=== PATIENT | female | born 1990 | race Caucasian/White ===

== ENCOUNTER 2017-10-07 11:49 | Inpatient (IN) | payer BC ==
[2017-10-07] MEDS ORDERED: Nalbuphine 20 MG/ML 1 ML Syringe IVPUSH PRN (12:04)
[2017-10-07] MEDS ORDERED: Sodium Chloride 0.9% 10 ML Syringe FLUSH PRN (12:04)
[2017-10-07] MEDS ORDERED: Lactated Ringers 1,000 ML IV SCH (12:15)
[2017-10-07] MEDS ORDERED: Oxytocin/Lactated Ringers 10 UNIT/1,000 ML BAG IV SCH (12:15)
--- NOTE | 2017-10-07 12:31 | PCM.LDHP ---
L&D History of Present Illness - General Date of Service: 10/07/17 Admit Problem/Dx: Patient Status Order with Admit Dx/Problem 10/07/17 12:04 Patient Status [ADT] Routine Admission Diagnosis/Problem Admission Diagnosis/Problem Active labor 10/07/17 12:23 38-2/7 week IUP, active labor, advanced cervical dilation. Source of Information: Patient History Limitations: Reports: No Limitations - History of Present Illness Introduction:: History of present illness: Ju is a 27-year-old 5 para 3013 white female is admitted in active labor with advanced cervical dilation to 6-7 cm, 100% effaced, +2 station, anterior, cephalic presentation. She's been pj since approximately 0400 hrs. this a.m.Membranes were intact upon arrival in hospital. They now ruptured with resultant clear amniotic flui She is pj every 2-3 minutes. heart tones are reassuring. 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 ROSELINE is 10/19/2017 as determined by certain last menstrual period which started on 01/12/2017 and is supported by multiple ultrasounds during the . Her course started on 05/02/2017 at 15 -5/7 weeks gestational age. She is made good fundal height growth and normal weight gain during the course of . Her weight has gone from 104.2 pounds up to 122 pounds for an 18 pound weight gain. Baby has been active. She has one risk factors as loss of a 27 week prior to this one. She declined testing that had been recommended. She is reporting good activity. Patient declined genetic evaluation. She declined T dap. [place] depression screening score was 1 on a scale 30 on 06/15/2017. Group B strep screen is negative. Monthly growth ultrasounds were initially done but then patient declined these also. Patient plans to breast-feed. Laboratory testing and shows blood to be A+ with a negative antibody screen. laboratory testing showed hemoglobin to be 13.7 g/dL. Platelets 274,000. Rubella titer shows immunity. RPR is nonreactive. Hepatitis B surface antigen and HIV assays were both negative. Gonorrhea and chlamydia assays were both negative. One-hour glucose tolerance test was 100. Her second trimester hemoglobin is 12.5 g/dL and platelets are 237,000. Group B strep screen was negative. Allergies none Medications: vitamins 1 daily Past medical history: 1. Normal spontaneous vaginal delivery 3 with viable pregnancies in 2011, and 2015. 2. Patient had a demise on 01/06/2013 at present 26-27 weeks gestational age. Cause unknown. 3. depression after second which was the loss Past surgical history: Tonsillectomy age 12 Family history: Mother is alive and well at age 50. She is hypothyroid on medications. Father is alive and well at age 51. Patient 6 brothers 2 with type 1 diabetes. 7 sisters 1 with type 1 diabetes. The bleeding, clotting, , anesthesia or asthma problems noted in the family. 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 She does not use any significant most alcohol, drugs or tobacco. is Yadiel. Review of systems: In general patient has no significant concerns. She is reporting contractions. Baby has been active Skin: Negative Cardiovascular: No chest pain or exercise intolerance noted previously Respiratory: No shortness of breath or symptoms Breasts: Changes associated . Patient plans to breast-feed GI: Negative. : By habitus changes associated with increased fundal height Neurological: Negative Musculoskeletal: Negative Physical exam: In general patient is well-developed, well-nourished, pleasant female who is in moderate distress secondary to contractions. Her last blood pressure in clinic was 116/54, weight was 122 with a pregravid weight of 104. heart rate was 124. Her pregravid body mass index was 17.9 and height is 5 feet 1 inches. HEENT neck and back within normal and so para skin is warm dry without lesions. Cardiovascular exam shows regular rate and rhythm without murmurs. Breast exam is deferred at this time having been done at first visit normal. Abdomen is protuberant with last fundal height at 37 cm, baby in vertex presentation. Cervix is described above. Extremities and neurological exam grossly within normal limits. - Related Data Allergies/Adverse Reactions: Allergies Allergy/AdvReac Type Severity Reaction Status Date / Time No Known Allergies Allergy Verified 10/08/13 01:48 Home Medications: Home Meds Vit 90/Iron Fum/Folic [ Formula] 1 tab PO DAILY 12/19/15 [ History] Acetaminophen [Tylenol] 650 mg PO Q4H PRN #0 tablet 12/20/15 [Rx] Benzocaine/Menthol [Dermoplast Pain Relief [place]] 1 spray TOP ASDIRECTED PRN #0 canister 12/20/15 [Rx] Docusate Sodium [Colace] 100 mg PO BID PRN #0 cap 12/20/15 [Rx] Ibuprofen [IJD: Ibuprofen] 200 - 600 mg PO Q6H PRN #0 tablet 12/20/15 [Rx] Witjosi Yandy [Tucks] 1 pad TOP ASDIRECTED PRN #0 pad 12/20/15 [Rx] Past Medical History 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: Neurological History: Reports: Migraines - Past Surgical History HEENT Surgical History: Reports: Adenoidectomy, Tonsillectomy Social & Family History - Family History Family Medical History: Noncontributory H&P Review of Systems - Review of Systems: Review Of Systems: See Below L&D Exam - Exam Exam: See Below Problem List Initiated/Reviewed/Updated: Yes Orders Last 24hrs: Active Orders 24 hr Category Date Time Status Patient Status [ADT] Routine ADT 10/07/17 12:04 Active Activity as Tolerated [RC] PFP Care 10/07/17 12:04 Active Communication Order [RC] ASDIRECTED Care 10/07/17 12:04 Active Heart Tones [RC] ASDIRECTED Care 10/07/17 12:05 Active Notify Provider [RC] PFP Care 10/07/17 12:04 Active Notify Provider [RC] PRN Care 10/07/17 12:04 Active Peripheral IV Care [RC] . DIRECTED Care 10/07/17 12:05 Active Vital Signs [RC] PER UNIT ROUTINE Care 10/07/17 12:04 Active Regular Diet [DIET] Diet 10/07/17 Lunch Active Lactated Ringers [Ringers, Lactated] 1,000 ml Med 10/07/17 12:15 Active IV ASDIRECTED Lidocaine 1% [Xylocaine 1%] Med 10/07/17 17:00 Once 20 ml INJECT ONETIME ONE Nalbuphine [Nubain] Med 10/07/17 12:04 Active 10 mg IVPUSH Q2H PRN Oxytocin/Lactated Ringers [Pitocin in LR 10 Units/1,000 Med 10/07/17 12:15 Active ML] 10 unit in 1,000 ml IV .CONTINUOUS Sodium Chloride 0.9% [Saline Flush] Med 10/07/17 12:04 Active 10 ml FLUSH ASDIRECTED PRN Electronic Heart Tones Ext w TOCO [WOMSER] Oth 10/07/17 12:04 Ordered Routine Electronic Heart Tones Internal [WOMSER] Per Unit Ot 10/07/17 12:04 Ordered Routine Peripheral IV Insertion Adult [OM.PC] Routine Oth 10/07/17 12:04 Ordered Resuscitation Status Routine Resus Stat 10/07/17 12:04 Ordered Medication Orders Lactated Ringer's (Ringers, Lactated) 1,000 mls @ 100 mls/hr IV ASDIRECTED SINDHU Oxytocin/Lactated Ringer's (Pitocin In Lr 10 Units/1,000 Ml) 10 unit in 1,000 mls @ 500 mls/hr IV .CONTINUOUS SINDHU Lidocaine HCl (Xylocaine 1%) 20 ml INJECT ONETIME ONE Stop: 10/07/17 17:01 Nalbuphine HCl (Nubain) 10 mg IVPUSH Q2H PRN PRN Reason: Pain (moderate 4-6) Sodium Chloride (Saline Flush) 10 ml FLUSH ASDIRECTED PRN PRN Reason: Keep Vein Open Assessment/Plan Comment:: 1. 38-2/7 week intrauterine , active labor, advanced cervical dilation 2. Group B strep screen is negative 3. Rubella immune 4 Patient plans to breast-feed. 5. Patient wishes to have a natural labor Plan: 1. Anticipate normal spontaneous vaginal delivery 2. Natural labor 3. Support breast-feeding decision
[2017-10-07] MEDS ORDERED: Lidocaine 1% 50 ML MDV ONE (13:06)
--- NOTE | 2017-10-07 13:40 | PCM.SN ---
- Free Text/Narrative Note: Delivery note: Ju is a 27-year-old 5 now para 4014 white female at 38-2/7 weeks gestational age with an ROSELINE of 10/19/2017 who was admitted on the a.m. of 10/07/2017 in active labor. She is 5 cm upon admission. She had artificial rupture membranes and progressed rapidly to complete dilation. She pushed approximately 5 times and delivered a viable, cunningham, female infant in the left occiput anterior position over an intact perineum. Nose and mouth were bulb suctioned and baby was placed on mom's abdomen. Cord was allowed to pulsate until it stopped then was clamped 2 and then was cut by the baby's father. Baby was born at 1321 hrs., weight 3040 g (6 lbs. 11 oz.) . The placenta delivered at 1326 hrs. in a [place] presentation, appeared complete and intact and was discarded per patient desire. Estimated blood loss was 100 mL. Condition good. Patient plans to breast-feed. Patient had declined an IV, desired not to have Pitocin unless absolutely necessary and was able to maintain good uterine tone with massage and nursing only.
[2017-10-07] MEDS ORDERED: Docusate Sodium 100 MG Cap PO PRN (14:16)
[2017-10-07] MEDS ORDERED: Acetaminophen 325 MG Tab PO PRN (14:16)
[2017-10-07] MEDS ORDERED: Benzocaine/Menthol 20%-0.5% Spray 56 GM Canister TOP PRN (14:16)
[2017-10-07] MEDS ORDERED: Witch Hazel Medicated Pads 100/Jar TOP PRN (14:16)
[2017-10-07] MEDS ORDERED: Lanolin 100% Cream 7 GM Tube TOP PRN (14:16)
[2017-10-07] MEDS: Ibuprofen 600 MG Tab PO PRN ×2 (15:26→22:20)
[2017-10-07] MEDS ORDERED: Lidocaine 1% 50 ML MDV INJECT ONE (17:00)
[2017-10-08] MEDS: Ibuprofen 600 MG Tab PO PRN (04:22)
--- NOTE | 2017-10-08 05:16 | PCM.DCSUM1 ---
Discharge Summary - Hospital Course HPI Initial Comments: Admitted in active labor Diagnosis: Stroke: No - Discharge Data Discharge Date: 10/08/17 Discharge Disposition: Admitted As Inpatient 66 Condition: Good - Patient Summary/Data Hospital Course: madison is a 27-year-old 5 now para 4014 white female at 38-2/7 weeks gestational age with an ROSELINE of 10/19/2017 who was admitted on the a.m. of 2017 in active labor. She is 5 cm upon admission. She had artificial rupture membranes and progressed rapidly to complete dilation. She pushed approximately 5 times and delivered a viable, cunningham, female infant in the left occiput anterior position over an intact perineum. Nose and mouth were bulb suctioned and baby was placed on mom's abdomen. Cord was allowed to pulsate until it stopped then was clamped 2 and then was cut by the baby's father. Baby was born at 1321 hrs., weight 3040 g (6 lbs. 11 oz.) . The placenta delivered at 1326 hrs. in a [place] presentation, appeared complete and intact and was discarded per patient desire. Estimated blood loss was 100 mL. Condition good. Patient plans to breast-feed. - Patient Instructions Diet: Usual Diet as Tolerated Activity: No Strenuous Activities Activity, Other: pelvic rest Driving: May Drive Today Showering/Bathing: May Shower Wound/Incision Care: Keep Operative Site/Wound Site Clean and Dry Notify Provider of: Fever, Increased Pain, Swelling and Redness, Drainage, Nausea and/or Vomiting - Discharge Plan Home Medications: Home Meds Vit 90/Iron Fum/Folic [ Formula] 1 tab PO DAILY 12/19/15 [ History] Acetaminophen [Tylenol] 650 mg PO Q4H PRN #0 tablet 12/20/15 [Rx] Benzocaine/Menthol [Dermoplast Pain Relief [place]] 1 spray TOP ASDIRECTED PRN #0 canister 12/20/15 [Rx] Docusate Sodium [Colace] 100 mg PO BID PRN #0 cap 12/20/15 [Rx] Ibuprofen [IJD: Ibuprofen] 200 - 600 mg PO Q6H PRN #0 tablet 12/20/15 [Rx] Witjosi Stockel [Tucks] 1 pad TOP ASDIRECTED PRN #0 pad 12/20/15 [Rx] Referrals: Meng Givens MD [Primary Care Provider] - (2 weeks) - Discharge Summary/Plan Comment DC Time >30 min.: No - General Info Date of Service: 10/08/17 Functional Status: Reports: Pain Controlled - Review of Systems General: Reports: No Symptoms HEENT: Reports: No Symptoms Pulmonary: Reports: No Symptoms Cardiovascular: Reports: No Symptoms Gastrointestinal: Reports: No Symptoms Genitourinary: Reports: No Symptoms Musculoskeletal: Reports: No Symptoms Skin: Reports: No Symptoms Neurological: Reports: No Symptoms Psychiatric: Reports: No Symptoms - Patient Data Vitals - Most Recent: Last Vital Signs Temp 36.8 C 10/07/17 21:00 Pulse 62 10/07/17 21:00 Resp 16 10/07/17 21:00 BP 114/61 10/07/17 21:00 Pulse Ox 98 10/07/17 21:00 Weight - Most Recent: 54.885 kg Med Orders - Current: Current Medications Acetaminophen (Tylenol) 650 mg PO Q4H PRN PRN Reason: mild pain or fever Benzocaine/Menthol (Dermoplast Pain Relief [place]) 0 gm TOP ASDIRECTED PRN PRN Reason: Perineal Comfort Measure Last Admin: 10/08/17 04:20 Dose: 1 canister Docusate Sodium (Colace) 100 mg PO BID PRN PRN Reason: Constipation Emollient Ointment (Lansinoh Hpa) 0 gm TOP ASDIRECTED PRN PRN Reason: Sore Nipples Ibuprofen (Motrin) 600 mg PO Q4H PRN PRN Reason: Mild pain or fever Last Admin: 10/08/17 04:22 Dose: 600 mg Prenat Multivit/[place]ierra/Iron/Folic Ac ( Plus Iron) 1 each PO DAILY [facility] Harvey Kebede (Tucks) 1 pad TOP ASDIRECTED PRN PRN Reason: Hemorrhoid pain Last Admin: 10/08/17 04:21 Dose: 1 tub Discontinued Medications Lactated Ringer's (Ringers, Lactated) 1,000 mls @ 100 mls/hr IV ASDIRECTED [facility] Oxytocin/Lactated Ringer's (Pitocin In Lr 10 Units/1,000 Ml) 10 unit in 1,000 mls @ 500 mls/hr IV .CONTINUOUS [facility] Lidocaine HCl (Xylocaine 1%) 20 ml INJECT ONETIME ONE Stop: 10/07/17 17:01 Lidocaine HCl (Xylocaine 1%) Confirm Administered Dose 50 ml .ROUTE .STK-MED ONE Stop: 10/07/17 13:07 Last Admin: 10/07/17 20:15 Dose: Not Given Nalbuphine HCl (Nubain) 10 mg IVPUSH Q2H PRN PRN Reason: Pain (moderate 4-6) Sodium Chloride (Saline Flush) 10 ml FLUSH ASDIRECTED PRN PRN Reason: Keep Vein Open - Exam General: Reports: Alert, Oriented HEENT: Reports: Pupils Equal, Pupils Reactive, EOMI, Mucous Membr. Moist/[place] Neck: Reports: Supple Lungs: Reports: Clear to Auscultation, Normal Respiratory Effort Cardiovascular: Reports: Regular Rate, Regular Rhythm GI/Abdominal Exam: Normal Bowel Sounds, Soft Back Exam: Reports: Normal Inspection, Full Range of Motion Extremities: Normal Inspection, Normal Range of Motion, Non-Tender, No Pedal Edema, Normal Capillary Refill Skin: Reports: Warm, Dry, Intact Wound/Incisions: Reports: Healing Well Neurological: Reports: No New Focal Deficit Psy/Mental Status: Reports: Alert
[2017-10-08] MEDS ORDERED: Prenatal Multivitamin with Calcium/Folic Acid/Iron Tab PO SCH (09:00)
[2017-10-08 10:58] VITALS: BP 114/69
== END 2017-10-08 14:28 | disposition home or self-care (01) | DRG 560 ==
LOC: JD.OBCHECK 11:49 → JD.OB 11:51 → JD.OBCHECK 12:03 → JD.OB 12:04 → OBSVTOIN 13:21 → JD.OB 13:22
PROVIDERS: ADMIT Obstetrics & Gynecology; ATTEND Obstetrics & Gynecology
PROC: 10907ZC Drainage of Amniotic Fluid, Therapeutic from Products of Conception, Via Natural or Artificial Opening (ICD-10-PCS; principal; 2017-10-07)
PROC: 10E0XZZ Delivery of Products of Conception, External Approach (ICD-10-PCS; principal; 2017-10-07)
DX: O80 Encounter for full-term uncomplicated delivery (principal); Z3A.38 38 weeks gestation of pregnancy; Z37.0 Single live birth
CPT/HCPCS: 36415; 59025; 59409; 86592; A9270-GY

== ENCOUNTER 2019-08-24 22:47 | Inpatient (IN) | payer BC ==
[2019-08-24] MEDS ORDERED: Lactated Ringers 1,000 ML IV SCH (23:45)
[2019-08-24] MEDS ORDERED: Sodium Chloride 0.9% 10 ML Syringe FLUSH PRN (23:57)
[2019-08-24] MEDS ORDERED: Nalbuphine 10 MG/ML Syringe IVPUSH PRN (23:57)
--- NOTE | 2019-08-25 02:10 | PCM.LDHP ---
L&D History of Present Illness - General Date of Service: 08/25/19 Admit Problem/Dx: Patient Status Order with Admit Dx/Problem 08/24/19 22:54 Patient Status [ADT] Routine 08/24/19 23:58 Patient Status [ADT] Routine Admission Diagnosis/Problem Admission Diagnosis/Problem 08/25/19 01:56 Ju is a 28-year-old 6 para 4014 white female was admitted on the night of 08/24/2019 in active labor with a that is 39-1/7 weeks gestational age with an ROSELINE of 09/02/2019. Source of Information: Patient History Limitations: Reports: No Limitations - History of Present Illness Introduction:: Ju is a 28-year-old 6 para 4014 white female was admitted on the night of 08/24/2019 in active labor with a that is 39-1/7 weeks gestational age with an ROSELINE of 09/02/2019.She started labor over the course of last 24 hours. It is increased to frequency of 2-3 minutes and intensity is strong. She is dilated since her last evaluation clinic. Membranes are intact. Baby is active. heart tones are reassuring. 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 Her ROSELINE is 2019 as based upon a certain last menstrual period started 11/26/2018 confirmed with at least 1 ultrasound done on 01/21/2019 at 12-6/7 weeks. Patient had menarche at approximately age 12. Cycles are every month. LMP was relatively certain. Patient has had 5 vaginal deliveries. Second baby was at 26 weeks demise. Largest baby was 6 lbs. 14 oz. She has 3 living daughters and 1 son. course: Patient was seen for her first on 02/21/2019 at 12-3/ 7 weeks. She was seen on a reasonably regular basis during the course of . Weight gain was from 102.2 pounds up to 120.2 pounds for an 18 pound increase. Fundal height growth was appropriate. Vital signs are stable throughout the . Patient is group B strep negative. She declined influenza and the Tdap immunization. She plans to breast-feed. She desires natural labor. Her [place] depression screening score on 04/10/2019 was 2/30. Her rubella titer shows immunity. Laboratory testing and shows blood to be a positive with a negative MRI screen. Hemoglobin is 14.1 g/dL. Platelets 267,000. She is rubella immune. RPR is nonreactive. Urine culture showed no growth after 2 days. Hepatitis B surface antigen and HIV assays were both negative. Gonorrhea tests were both negative. Second trimester labs showed a hemoglobin of 12.3 g/dL and platelets of 229,000. Diabetic screen test was normal at 100 and. Her group B strep screen was negative. Her RPR on 05/31/2019 was nonreactive. Allergies: None Medications: vitamins 1 by mouth daily. Past medical history: 1. Normal spontaneous vaginally 5 2011 through 2017 2. demise at 26 weeks gestational age 3. depression after loss of her second child 4. Seasonal allergies Past surgical history: 1. Tonsillectomy age 12. Family history: Mother and father are alive and well at age 51. Mother is hypothyroid. Patient has 6 brothers to his type 1 diabetes. 7 sisters1 with type 1 diabetes. No bleeding, blood clotting, , anesthesia or asthma problems noted in the family. Social history: Patient is . is Yadiel. 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 She is a high school graduate. She and her family live in [place], [place]. She does not use any significant amounts of alcohol, drugs or tobacco. Review of systems: In general patient has no complaints other than labor pains. Skin: Negative Lungs: No infectious symptoms or shortness of breath Cardiovascular: No chest pain or exercise intolerance Breasts: No lumps, changes in size, pain, dimpling, discharge or axillary or supraclavicular concerns. Changes associated . Patient plans to breast- feed. GI: Negative : body habitus changes Musculoskeletal: Negative Neurological: Negative In general the patient is well-developed, well-nourished, pleasant female of stated age in no acute distress. On last evaluation clinic on 08/09/2019 patient's blood pressures 110/62, weight was 120.2 with pregravid weight at 102.2. Height is 5 feet 1. Prepregnancy body mass index is 18.1. heart rate was 125. Skin is warm dry without lesions. HEENT, neck and back within normal limits. Lungs are clear with good breath sounds in all lung mckay. Cardiovascular exam shows regular and rhythm without murmurs. Abdomen is flat, soft, nontender without masses or organomegaly. Positive bowel sounds are noted. No inguinal lymphadenopathy or hernias are noted. Genital per digital exam at the time of her last clinic visit cervix was 2 cm dilated, 70% effaced, soft, posterior, -3. Per nursing evaluation on admission her cervix was 3-4 cm. Extremities and neurological exam are grossly within normal limits. 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 - Past Surgical History HEENT Surgical History: Reports: Adenoidectomy, Tonsillectomy Social & Family History - Family History Family Medical History: Noncontributory - Tobacco Use Smoking Status *Q: Never Smoker Second Hand Smoke Exposure: No - Caffeine Use Caffeine Use: Reports: None - Recreational Drug Use Recreational Drug Use: No H&P Review of Systems - Review of Systems: Review Of Systems: See Below L&D Exam - Exam Exam: See Below - Vital Signs Vital Signs: Last Vital Signs Temp 36.5 C 08/24/19 22:54 Pulse 77 08/24/19 22:54 Resp 16 08/24/19 22:54 BP 134/95 H 08/24/19 22:54 Pulse Ox 98 08/24/19 22:54 Weight: 55.338 kg Problem List Initiated/Reviewed/Updated: Yes Orders Last 24hrs: Active Orders 24 hr Category Date Time Status Patient Status [ADT] Routine ADT 08/24/19 23:58 Active Activity as Tolerated [RC] PFP Care 08/24/19 23:58 Active Communication Order [RC] ASDIRECTED Care 08/24/19 23:58 Active Heart Tones [RC] ASDIRECTED Care 08/24/19 23:58 Active Non Stress Test [RC] PER UNIT ROUTINE Care 08/24/19 22:54 Active Notify Provider [RC] PFP Care 08/24/19 23:58 Active Notify Provider [RC] PRN Care 08/24/19 23:58 Active Peripheral IV Care [RC] . DIRECTED Care 08/24/19 23:58 Active Vital Signs [RC] PER UNIT ROUTINE Care 08/24/19 22:54 Active Vital Signs [RC] PER UNIT ROUTINE Care 08/24/19 23:58 Active Regular Diet [DIET] Diet 08/24/19 Breakfast Active RAPID PLASMA REAGIN,RPR [CHEM] Routine Lab 08/24/19 23:58 Ordered Lactated Ringers [Ringers, Lactated] 1,000 ml Med 08/24/19 23:45 Active IV ASDIRECTED Nalbuphine [Nubain] Med 08/24/19 23:57 Active 10 mg IVPUSH Q2H PRN Sodium Chloride 0.9% [Saline Flush] Med 08/24/19 23:57 Active 10 ml FLUSH ASDIRECTED PRN Electronic Heart Tones Ext w TOCO [WOMSER] Oth 08/24/19 23:58 Ordered Routine Electronic Heart Tones Internal [WOMSER] Per Unit Oth 08/24/19 23:58 Ordered Routine Peripheral IV Insertion Adult [OM.PC] Routine Oth 08/24/19 23:58 Ordered Resuscitation Status Routine Resus Stat 08/24/19 22:54 Ordered Medication Orders Lactated Ringer's (Ringers, Lactated) 1,000 mls @ 100 mls/hr IV ASDIRECTED SINDHU Nalbuphine HCl (Nubain) 10 mg IVPUSH Q2H PRN PRN Reason: Pain Sodium Chloride (Saline Flush) 10 ml FLUSH ASDIRECTED PRN PRN Reason: Keep Vein Open Assessment/Plan Comment:: 1. 28-year-old 6 para 4014 white female at 38-6/7 week with an ROSELINE of upon admission in active labor. 2. Group B strep screen negative. 3. Patient desires natural labor 4. Rubella immune 5. Risk factors include history of previous demise at 26 weeks 6. Patient declined Tdap and flu immunization 7. Patient plans to breast-feed. Plan: 1. Anticipate normal spontaneous vaginal delivery 2. Natural delivery plan. 3. Patient desires not to have an IV. She is aware of the risks. 4. Support breast-feeding plan.
--- NOTE | 2019-08-25 02:46 | PCM.SN.2 ---
- Free Text/Narrative Note: Delivery note: Ju is a 28-year-old 6 para 4014 white female was admitted on the night of 08/24/2019 in active labor with a that is 39-1/7 weeks gestational age with an ROSELINE of 09/02/2019. Patient desired natural labor. She declined IV placement. She is aware of risks. She progressed steadily to complete cervical dilation by approximately 0200 hrs. on 08/25/2019. At oh to 18 hours she delivered a viable, cunningham, male infant with Apgars of 9 and 9, a length of 19.0, a weight of 6 pounds, 8 ounces in a direct occiput anterior position over an intact perineum. The baby was placed on mom's abdomen and warmed and dried with a warm blanket. The cord was noted to have 3 vessels. It was allowed to pulsate until it had stopped and placenta was beginning to deliver. The cord was then clamped 2, cut by the baby's father Yadiel. Cord blood was obtained. The placenta then delivered in a [place] presentation, appeared intact and complete and was discarded per patient desire. Estimated blood loss was approximately 100 mL. Patient plans to breast-feed. Condition: Good
[2019-08-25] MEDS ORDERED: Witch Hazel Medicated Pads 40/Jar TOP PRN (03:13)
[2019-08-25] MEDS ORDERED: Docusate Sodium 100 MG Cap PO PRN (03:13)
[2019-08-25] MEDS ORDERED: Benzocaine/Menthol 20%-0.5% Spray 56 GM Canister TOP PRN (03:13)
[2019-08-25] MEDS ORDERED: Acetaminophen 325 MG Tab PO PRN (03:13)
[2019-08-25] MEDS: Ibuprofen 600 MG Tab PO PRN ×3 (04:36→17:42)
--- NOTE | 2019-08-25 09:46 | PCM.SN.2 ---
- Free Text/Narrative Note: note: Date of delivery Patient is doing well in the period. Minimal lochia, voiding well, ambulated without problems. Nursing without concerns. Patient is afebrile, vital signs are stable Abdomen is flat, soft, uterus is below the umbilicus and is firm and nontender. Legs are nontender. Assessment: recovery going well. Plan: Routine care. Patient be discharged home within the next 24-48 hours.
[2019-08-25] MEDS: Prenatal Multivitamin with Calcium/Folic Acid/Iron Tab PO SCH (10:23)
--- NOTE | 2019-08-26 07:39 | PCM.DCSUM1 ---
Discharge Summary - Hospital Course Free Text/Narrative:: Ju is a 28-year-old 6 para 4014 white female was admitted on the night of 08/24/2019 in active labor with a that is 39-1/7 weeks gestational age with an ROSELINE of 09/02/2019. Patient desired natural labor. She declined IV placement. She is aware of risks. She progressed steadily to complete cervical dilation by approximately 0200 hrs. on 08/25/2019. At oh to 18 hours she delivered a viable, cunningham, male infant with Apgars of 9 and 9, a length of 19.0, a weight of 6 pounds, 8 ounces in a direct occiput anterior position over an intact perineum. The baby was placed on mom's abdomen and warmed and dried with a warm blanket. The cord was noted to have 3 vessels. It was allowed to pulsate until it had stopped and placenta was beginning to deliver. The cord was then clamped 2, cut by the baby's father Yadiel. Cord blood was obtained. The placenta then delivered in a [place] presentation, appeared intact and complete and was discarded per patient desire. Estimated blood loss was approximately 100 mL. Patient plans to breast-feed. patient has done well. She is ambulating well, has minimal lochia, is voiding without problems and is nursing without concerns. She is desiring discharge home. Condition: Good Diagnosis: Stroke: No - Discharge Data Discharge Date: 08/26/19 Discharge Disposition: Home, Self-Care 01 Condition: Good - Referral to Home Health Primary Care Physician: Meng Givens MD - Patient Instructions Diet: Regular Diet as Tolerated (Nursing diet with increase calories and calcium as recommended) Activity: As Tolerated (No intercourse or tampons until bleeding resolves) Driving: May Drive Today Showering/Bathing: May Shower (May take a bath) Notify Provider of: Fever, Increased Pain, Swelling and Redness, Nausea and/or Vomiting - Discharge Plan Home Medications: Home Meds Vit 90/Iron Fum/Folic [ Formula] 1 tab PO DAILY 12/19/15 [ History] Acetaminophen [Tylenol] 650 mg PO Q4H PRN tablet 08/26/19 [Rx] Ibuprofen [Motrin] 600 mg PO Q4H PRN tablet 08/26/19 [Rx] Referrals: Meng Givens MD [Primary Care Provider] - (Patient is to call to clinic to make a telehealth appointment for 2 weeks from the time of delivery.) - Discharge Summary/Plan Comment DC Time >30 min.: No Discharge Summary/Plan Comment: Discharge instructions: 1. Discharge home 2. Diet, activity and follow-up discussed with patient. Recommend nursing diet with increased calories and calcium. 3. Precautions given concern increased pain, bleeding, temperature, signs/ symptoms of DVT/PE. 4. Medications per home medication was printed, discussed with and given to the patient. 5. The patient is to call the clinic to make a telehealth appointment with Dr. Givens[facility] for 2 weeks . Diagnosis: Term -delivered Condition: Good - Patient Data Vitals - Most Recent: Last Vital Signs Temp 36.9 C 08/26/19 04:16 Pulse 54 L 08/26/19 04:16 Resp 16 08/26/19 04:16 BP 107/65 08/26/19 04:16 Pulse Ox 95 08/26/19 04:16 Weight - Most Recent: 55.338 kg Med Orders - Current: Current Medications Acetaminophen (Tylenol) 650 mg PO Q4H PRN PRN Reason: mild pain or fever Benzocaine/Menthol (Dermoplast Pain Relief [place]) 0 gm TOP ASDIRECTED PRN PRN Reason: Perineal Comfort Measure Docusate Sodium (Colace) 100 mg PO BID PRN PRN Reason: Constipation Ibuprofen (Motrin) 600 mg PO Q4H PRN PRN Reason: Mild pain or fever Last Admin: 08/25/19 17:42 Dose: 600 mg Prenat Multivit/[place]/Iron/Folic Ac ( Plus Iron) 1 each PO DAILY SINDHU Last Admin: 08/25/19 10:23 Dose: Not Given Witch Yandy (Tucks) 1 pad TOP ASDIRECTED PRN PRN Reason: Perineal Comfort Measure Last Admin: 08/25/19 04:36 Dose: 1 tub Discontinued Medications Lactated Ringer's (Ringers, Lactated) 1,000 mls @ 100 mls/hr IV ASDIRECTED SINDHU Nalbuphine HCl (Nubain) 10 mg IVPUSH Q2H PRN PRN Reason: Pain Sodium Chloride (Saline Flush) 10 ml FLUSH ASDIRECTED PRN PRN Reason: Keep Vein Open
[2019-08-26 09:11] VITALS: BP 125/86; PULSE 58
[2019-08-26] MEDS: Prenatal Multivitamin with Calcium/Folic Acid/Iron Tab PO SCH (09:35)
== END 2019-08-26 09:25 | disposition home or self-care (01) | DRG 560 ==
LOC: JD.OB 22:47 → JD.OBCHECK 22:47 → JD.OB 23:58 → OBSVTOIN 08-25 02:18 → JD.OB 08-25 02:18
PROVIDERS: ADMIT Obstetrics & Gynecology; ATTEND Obstetrics & Gynecology
PROC: 10E0XZZ Delivery of Products of Conception, External Approach (ICD-10-PCS; principal; 2019-08-25)
DX: O80 Encounter for full-term uncomplicated delivery (principal); Z37.0 Single live birth; Z3A.39 39 weeks gestation of pregnancy
CPT/HCPCS: 59025; 59409; A9270-GY

== ENCOUNTER 2021-03-02 04:18 | Inpatient (IN) | payer BC ==
[2021-03-02] MEDS ORDERED: Nalbuphine 10 MG/1 ML Vial IVPUSH PRN (05:51)
[2021-03-02] MEDS ORDERED: Sodium Chloride 0.9% 10 ML Syringe FLUSH PRN (05:51)
[2021-03-02] MEDS ORDERED: Lactated Ringers 1,000 ML IV SCH (06:00)
[2021-03-02] MEDS ORDERED: Oxytocin 10 Units/1 ML SDV ONE (06:32)
[2021-03-02] MEDS ORDERED: Carboprost Tromethamine 250 MCG/1 ML Amp ONE (06:37)
--- NOTE | 2021-03-02 06:45 | PCM.DEL ---
L & D Note - General Info Date of Service: 03/02/21 - Delivery Note Labor: Spontaneous Delivery Outcome: Livebirth Delivery Method: Spontaneous Vaginal Delivery-Single Delivery Mode: Spontaneous Presentation: Right Occiput Anterior (CHERYL) Nuchal Cord: Present. No: Reduced Anesthesia Type: None Amniotic Fluid Description: Clear Episiotomy Type: None Laceration: None Placenta: Intact, Spontaneous Cord: 3 Vessels Estimated Blood Loss: 400 Resuscitation Needed: Yes [place]: Bulb Syringe, Stimulated, Warmed, [place] Used Delivery Comments (Free Text/Narrative):: Patient found to be complete and began pushing. With maternal pushing effort head delivered from CHERYL presentation. Nuchal cord present, but tight and so not reduced. With gentle downward traction shoulders and body delivered. placed on maternal abdomen. Cord clamped and cut. Cord blood obtained. Placenta allowed time to separate and expelled intact. Patient initially declined pitocin, but had several large clots and somewhat heavy flow. Agreed to IM pitocin. Bleeding improved with this. Inspection of perineum with no tears - General Info Date of Service: 03/02/21 - Problem List & Annotations (1) Normal labor SNOMED Code(s): 44544905 Code(s): O80 - ENCOUNTER FOR FULL-TERM UNCOMPLICATED DELIVERY; Z37.9 - OUTCOME OF DELIVERY, UNSPECIFIED Status: Acute Current Visit: Yes (2) 38 weeks gestation of SNOMED Code(s): 47992469 Code(s): Z3A.38 - 38 WEEKS GESTATION OF Status: Acute Current Visit: No (3) Vaginal delivery SNOMED Code(s): 946808440 Code(s): O80 - ENCOUNTER FOR FULL-TERM UNCOMPLICATED DELIVERY Status: Acute Current Visit: Yes - Problem List Review Problem List Initiated/Reviewed/Updated: Yes - My Orders Last 24 Hours: My Active Orders 03/02/21 04:27 Non Stress Test [RC] PER UNIT ROUTINE Vital Signs [RC] PER UNIT ROUTINE Resuscitation Status Routine 03/02/21 04:45 Patient Status [ADT] Routine 03/02/21 05:51 Activity as Tolerated [RC] PFP Communication Order [RC] ASDIRECTED Notify Provider [RC] PFP Notify Provider [RC] PRN Nalbuphine [Nubain] 10 mg IVPUSH Q2H PRN Sodium Chloride 0.9% [Saline Flush] 10 ml FLUSH ASDIRECTED PRN Electronic Heart Tones Ext w TOCO [WOMSER] Routine Electronic Heart Tones Internal [WOMSER] Per Unit Routine Peripheral IV Insertion Adult [OM.PC] Routine 03/02/21 05:52 Heart Tones [RC] ASDIRECTED Peripheral IV Care [RC] . DIRECTED CORONAVIRUS COVID-19 LULI [MOLEC] Stat 03/02/21 06:00 Lactated Ringers [Ringers, Lactated] 1,000 ml IV ASDIRECTED 03/02/21 06:43 Patient Status Manage Transfer [TRANSFER] Routine - Assessment Assessment:: PPD#0 - Plan Plan:: * Routine cares * Breast feeding * Discharge in 1-2 day
--- NOTE | 2021-03-02 06:45 | PCM.LDHP ---
L&D History of Present Illness - General Date of Service: 03/02/21 Admit Problem/Dx: Patient Status Order with Admit Dx/Problem 03/02/21 04:27 Patient Status [ADT] Routine 03/02/21 04:45 Patient Status [ADT] Routine Admission Diagnosis/Problem Admission Diagnosis/Problem Active labor Source of Information: Patient History Limitations: Reports: No Limitations - History of Present Illness Introduction:: 30 y/o at 38 6/7 wks who presented with SROM / labor. Doing well. Feeling urge to push - Related Data Allergies/Adverse Reactions: Allergies Allergy/AdvReac Type Severity Reaction Status Date / Time No Known Allergies Allergy Verified 03/02/21 08:14 Home Medications: Home Meds Vit 90/Iron Fum/Folic [ Formula] 1 tab PO DAILY 12/19/15 [History] Past Medical History [employer] History: Reports: , Other (See Below) : 7 Para: 6 (5 living children) Other OB/BYN History: Second resulted in 26 week demise Neurological History: Reports: Migraines Psychiatric History: Reports: Other (See Below) Other Psychiatric History: Spouse reports depression after loss of second child, denies any medications or hospitalizations. - Past Surgical History HEENT Surgical History: Reports: Adenoidectomy, Tonsillectomy Social & Family History - Family History Family Medical History: No Pertinent Family History - Tobacco Use Tobacco Use Status *Q: Never Tobacco User - Caffeine Use Caffeine Use: Reports: None - Alcohol Use Alcohol Use History: No - Recreational Drug Use Recreational Drug Use: No H&P Review of Systems - Review of Systems: Review Of Systems: See Below General: Reports: No Symptoms Pulmonary: Reports: No Symptoms Cardiovascular: Reports: No Symptoms Gastrointestinal: Reports: Abdominal Pain Genitourinary: Reports: No Symptoms Musculoskeletal: Reports: No Symptoms Psychiatric: Reports: No Symptoms Neurological: Reports: No Symptoms L&D Exam - Exam Exam: See Below - OB Specific Contraction Intensity: Moderate to Strong Movement: Active Heart Tones: Present Heart Tones per Min: 130 Heart Rate (FHR) Variability: Moderate (6-25 bpm) Presentation: Vertex - Arboleda Score Arboleda Score Cervix Position: Anterior Arboleda Score Consistency: Soft Arboleda Score Effacement: >80% Arboleda Score Dilation: > 5 cm Arboleda Score Infant's Station: -1 ,0 Arboleda Score Total: 12 - Exam General: Alert, Oriented, Cooperative Lungs: Clear to Auscultation, Normal Respiratory Effort Cardiovascular: Regular Rate, Regular Rhythm GI/Abdominal Exam: Soft, Non-Tender Genitourinary: Normal external exam Extremities: Normal Inspection Skin: Warm, Dry, Intact - Problem List (1) 38 weeks gestation of SNOMED Code(s): 78695482 ICD Code: Z3A.38 - 38 WEEKS GESTATION OF Status: Acute Current Visit: No (2) Normal labor SNOMED Code(s): 26544497 ICD Code: O80 - ENCOUNTER FOR FULL-TERM UNCOMPLICATED DELIVERY; Z37.9 - OUTCOME OF DELIVERY, UNSPECIFIED Status: Acute Current Visit: Yes Problem List Initiated/Reviewed/Updated: Yes Orders Last 24hrs: Active Orders 24 hr Category Date Time Status Patient Status Manage Transfer [TRANSFER] Routine ADT 03/02/21 06:43 Ordered Patient Status [ADT] Routine ADT 03/02/21 04:45 Active Activity as Tolerated [RC] PFP Care 03/02/21 05:51 Active Communication Order [RC] ASDIRECTED Care 03/02/21 05:51 Active Heart Tones [RC] ASDIRECTED Care 03/02/21 05:52 Active Non Stress Test [RC] PER UNIT ROUTINE Care 03/02/21 04:27 Active Notify Provider [RC] PFP Care 03/02/21 05:51 Active Notify Provider [RC] PRN Care 03/02/21 05:51 Active Peripheral IV Care [RC] . DIRECTED Care 03/02/21 05:52 Active Vital Signs [RC] PER UNIT ROUTINE Care 03/02/21 04:27 Active CORONAVIRUS COVID-19 LULI [MOLEC] Stat Lab 03/02/21 05:52 Ordered Lactated Ringers [Ringers, Lactated] 1,000 ml Med 03/02/21 06:00 Active IV ASDIRECTED Nalbuphine [Nubain] Med 03/02/21 05:51 Active 10 mg IVPUSH Q2H PRN Sodium Chloride 0.9% [Saline Flush] Med 03/02/21 05:51 Active 10 ml FLUSH ASDIRECTED PRN Electronic Heart Tones Ext w TOCO [WOMSER] Oth 03/02/21 05:51 Ordered Routine Electronic Heart Tones Internal [WOMSER] Per Unit Oth 03/02/21 05:51 Ordered Routine Peripheral IV Insertion Adult [OM.PC] Routine Oth 03/02/21 05:51 Ordered Resuscitation Status Routine Resus Stat 03/02/21 04:27 Ordered Medication Orders Lactated Ringer's (Ringers, Lactated) 1,000 mls @ 100 mls/hr IV ASDIRECTED SINDHU Nalbuphine HCl (Nalbuphine 10 Mg/1 Ml Vial) 10 mg IVPUSH Q2H PRN PRN Reason: Pain Sodium Chloride (Sodium Chloride 0.9% 10 Ml Syringe) 10 ml FLUSH ASDIRECTED PRN PRN Reason: Keep Vein Open Assessment/Plan Comment:: * Labs not done yet * GBS negative * Delivery imminent
[2021-03-02] MEDS ORDERED: Witch Hazel Medicated Pads 40/Jar TOP PRN (08:13)
[2021-03-02] MEDS ORDERED: Acetaminophen 325 MG Tab PO PRN (08:13)
[2021-03-02] MEDS ORDERED: Benzocaine/Menthol 20%-0.5% Spray 78 GM Cannister TOP PRN (08:13)
[2021-03-02] MEDS ORDERED: Ibuprofen 600 MG Tab PO PRN (08:13)
[2021-03-02] MEDS ORDERED: Docusate Sodium 100 MG Cap PO PRN (08:13)
[2021-03-02] MEDS ORDERED: Oxytocin 10 Units/1 ML SDV IM ONE (08:53)
--- NOTE | 2021-03-03 06:34 | PCM.DCSUM1 ---
Discharge Summary - Discharge Data Discharge Date: 03/03/21 Discharge Disposition: Home, Self-Care 01 Condition: Good - Referral to Home Health Primary Care Physician: Meng Givens MD - Discharge Diagnosis/Problem(s) (1) Normal labor SNOMED Code(s): 60833943 ICD Code: O80 - ENCOUNTER FOR FULL-TERM UNCOMPLICATED DELIVERY; Z37.9 - OUTCOME OF DELIVERY, UNSPECIFIED Status: Acute (2) 38 weeks gestation of SNOMED Code(s): 87310182 ICD Code: Z3A.38 - 38 WEEKS GESTATION OF Status: Acute (3) Vaginal delivery SNOMED Code(s): 558907115 ICD Code: O80 - ENCOUNTER FOR FULL-TERM UNCOMPLICATED DELIVERY Status: Acute - Patient Summary/Data Complications: None Consults: None Hospital Course: 30 y/o at 38 6/7 wks presented in labor. Progressed well. Underwent uncomplicated . See delivery note. was discharged home on PPD#1 - Patient Instructions Diet: Regular Diet as Tolerated Activity: As Tolerated Activity, Other: Pelvic rest for 6 weeks Driving: May Drive Today Showering/Bathing: May Shower Showering/Bathing, Other: May Bathe Notify Provider of: Fever, Increased Pain, Swelling and Redness, Drainage, Nausea and/or Vomiting - Discharge Plan *PRESCRIPTION DRUG MONITORING PROGRAM REVIEWED*: No *COPY OF PRESCRIPTION DRUG MONITORING REPORT IN PATIENT FAREED: No Home Medications: Home Meds Vit 90/Iron Fum/Folic [ Formula] 1 tab PO DAILY 12/19/15 [History] Acetaminophen [Tylenol] 650 mg PO Q4H PRN tablet 03/02/21 [Rx] Docusate Sodium [Colace] 100 mg PO BID PRN cap 03/02/21 [Rx] Ibuprofen [Motrin] 600 mg PO Q6H PRN tablet 03/02/21 [Rx] Patient Handouts: Care After Vaginal Delivery Referrals: Meng Givens MD [Primary Care Provider] - (3 weeks for check ) - Discharge Summary/Plan Comment DC Time >30 min.: No Total # of Minutes for Discharge Time: 15 - Patient Data Vitals - Most Recent: Last Vital Signs Temp 36.6 C 03/03/21 04:27 Pulse 64 03/03/21 04:27 Resp 15 03/03/21 04:27 BP 118/55 L 03/03/21 04:27 Pulse Ox 99 03/03/21 04:27 Weight - Most Recent: 55.021 kg I&O - Last 24 hours: Intake & Output 03/02/21 03/02/21 03/03/21 14:59 22:59 06:59 Output Total 150 Balance -150 Lab Results - Last 24 hrs: Laboratory Results - last 24 hr 03/02/21 Range/Units 08:10 SARS-CoV-2 RNA (LULI) Negative (NEGATIVE) Med Orders - Current: Current Medications Acetaminophen (Acetaminophen 325 Mg Tab) 650 mg PO Q4H PRN PRN Reason: mild pain or fever Benzocaine/Menthol (Benzocaine/Menthol 20%-0.5% [place] 78 Gm Cannister) 0 gm TOP ASDIRECTED PRN PRN Reason: Perineal Comfort Measure Docusate Sodium (Docusate Sodium 100 Mg Cap) 100 mg PO BID PRN PRN Reason: Constipation Ibuprofen (Ibuprofen 600 Mg Tab) 600 mg PO Q6H PRN PRN Reason: Mild pain or fever Witch Yandy (Witch Yandy Medicated Pads 40/Jar) 1 pad TOP ASDIRECTED PRN PRN Reason: Perineal Comfort Measure Discontinued Medications Carboprost Tromethamine (Carboprost Tromethamine 250 Mcg/1 Ml Amp) Confirm Administered Dose 250 mcg .ROUTE .STK-MED ONE Stop: 03/02/21 06:38 Last Admin: 03/02/21 08:53 Dose: Not Given Documented by: Lactated Ringer's (Ringers, Lactated) 1,000 mls @ 100 mls/hr IV ASDIRECTED SINDHU Nalbuphine HCl (Nalbuphine 10 Mg/1 Ml Vial) 10 mg IVPUSH Q2H PRN PRN Reason: Pain Oxytocin (Oxytocin 10 Units/1 Ml Sdv) Confirm Administered Dose 10 unit .ROUTE .STK-MED ONE Stop: 03/02/21 06:33 Last Admin: 03/02/21 06:33 Dose: 10 unit Documented by: Oxytocin (Oxytocin 10 Units/1 Ml Sdv) 10 unit IM ONETIME ONE Stop: 03/02/21 08:54 Last Admin: 03/02/21 17:32 Dose: Not Given Documented by: Sodium Chloride (Sodium Chloride 0.9% 10 Ml Syringe) 10 ml FLUSH ASDIRECTED PRN PRN Reason: Keep Vein Open
--- NOTE | 2021-03-03 06:34 | PCM.PNPP ---
- General Info Date of Service: 03/03/21 Functional Status: Reports: Pain Controlled, Tolerating Diet, Ambulating, Urinating - Review of Systems General: Reports: No Symptoms Pulmonary: Reports: No Symptoms Cardiovascular: Reports: No Symptoms Gastrointestinal: Reports: No Symptoms Genitourinary: Reports: No Symptoms Musculoskeletal: Reports: No Symptoms Neurological: Reports: No Symptoms - General Info Date of Service: 03/03/21 - Patient Data Vital Signs - Most Recent: Last Vital Signs Temp 36.6 C 03/03/21 04:27 Pulse 64 03/03/21 04:27 Resp 15 03/03/21 04:27 BP 118/55 L 03/03/21 04:27 Pulse Ox 99 03/03/21 04:27 Weight - Most Recent: 55.021 kg I&O - Last 24 Hours: Intake & Output 03/02/21 03/02/21 03/03/21 14:59 22:59 06:59 Output Total 150 Balance -150 Lab Results - Last 24 Hours: Laboratory Results - last 24 hr 03/02/21 Range/Units 08:10 SARS-CoV-2 RNA (LULI) Negative (NEGATIVE) Med Orders - Current: Current Medications Acetaminophen (Acetaminophen 325 Mg Tab) 650 mg PO Q4H PRN PRN Reason: mild pain or fever Benzocaine/Menthol (Benzocaine/Menthol 20%-0.5% [place] 78 Gm Cannister) 0 gm TOP ASDIRECTED PRN PRN Reason: Perineal Comfort Measure Docusate Sodium (Docusate Sodium 100 Mg Cap) 100 mg PO BID PRN PRN Reason: Constipation Ibuprofen (Ibuprofen 600 Mg Tab) 600 mg PO Q6H PRN PRN Reason: Mild pain or fever Witch Yandy (Witch Yandy Medicated Pads 40/Jar) 1 pad TOP ASDIRECTED PRN PRN Reason: Perineal Comfort Measure Discontinued Medications Carboprost Tromethamine (Carboprost Tromethamine 250 Mcg/1 Ml Amp) Confirm Administered Dose 250 mcg .ROUTE .STK-MED ONE Stop: 03/02/21 06:38 Last Admin: 03/02/21 08:53 Dose: Not Given Documented by: Lactated Ringer's (Ringers, Lactated) 1,000 mls @ 100 mls/hr IV ASDIRECTED SINDHU Nalbuphine HCl (Nalbuphine 10 Mg/1 Ml Vial) 10 mg IVPUSH Q2H PRN PRN Reason: Pain Oxytocin (Oxytocin 10 Units/1 Ml Sdv) Confirm Administered Dose 10 unit .ROUTE .STK-MED ONE Stop: 03/02/21 06:33 Last Admin: 03/02/21 06:33 Dose: 10 unit Documented by: Oxytocin (Oxytocin 10 Units/1 Ml Sdv) 10 unit IM ONETIME ONE Stop: 03/02/21 08:54 Last Admin: 03/02/21 17:32 Dose: Not Given Documented by: Sodium Chloride (Sodium Chloride 0.9% 10 Ml Syringe) 10 ml FLUSH ASDIRECTED PRN PRN Reason: Keep Vein Open - Infant Interaction Infant Disposition, : [place] in Room with Family Infant Interaction: Holding Infant Feeding: Breastfed ; Nursed Well Support Person: - Recovery Exam Fundal Tone: Firm Fundal Level: At Umbilicus Fundal Placement: Midline Lochia Amount: Small Lochia Color: Rubra/Red Perineum Description: Intact, Minimal Bruising/Swelling Bladder Status: Voiding - Exam General: Alert, Oriented, Cooperative GI/Abdominal Exam: Soft, Non-Tender - Problem List & Annotations (1) Normal labor SNOMED Code(s): 47411756 Code(s): O80 - ENCOUNTER FOR FULL-TERM UNCOMPLICATED DELIVERY; Z37.9 - OUTCOME OF DELIVERY, UNSPECIFIED Status: Acute (2) 38 weeks gestation of SNOMED Code(s): 68622403 Code(s): Z3A.38 - 38 WEEKS GESTATION OF Status: Acute (3) Vaginal delivery SNOMED Code(s): 204774059 Code(s): O80 - ENCOUNTER FOR FULL-TERM UNCOMPLICATED DELIVERY Status: Acute - Problem List Review Problem List Initiated/Reviewed/Updated: Yes - Assessment Assessment:: PPD#1 - Plan Plan:: * Routine cares * Breast feeding * Discharge today
[2021-03-03 11:25] VITALS: BP 126/65; PULSE 78
== END 2021-03-03 13:10 | disposition home or self-care (01) | DRG 560 ==
LOC: JD.OBCHECK 04:18 → JD.OB 04:21 → JD.OBCHECK 04:44 → JD.OB 04:45 → OBSVTOIN 06:43 → JD.OB 06:44
PROVIDERS: ADMIT Obstetrics & Gynecology; ATTEND Obstetrics & Gynecology
PROC: 10E0XZZ Delivery of Products of Conception, External Approach (ICD-10-PCS; principal; 2021-03-02)
PROC: 10907ZC Drainage of Amniotic Fluid, Therapeutic from Products of Conception, Via Natural or Artificial Opening (ICD-10-PCS; 2021-03-02)
DX: O69.1XX0 Labor and delivery complicated by cord around neck, with compression, not applicable or unspecified (principal); Z3A.38 38 weeks gestation of pregnancy; Z37.0 Single live birth; Z20.822 Contact with and (suspected) exposure to COVID-19
CPT/HCPCS: 59025; 59409; J2590; U0002

== ENCOUNTER 2022-12-26 15:06 | Emergency (ER) | payer BC ==
[2022-12-26 15:27] VITALS: PULSE 84
[2022-12-26] MEDS ORDERED: Sodium Chloride 0.9% 10 ML Syringe FLUSH PRN (15:56)
[2022-12-26] MEDS ORDERED: Sodium Chloride 0.9% 1,000 ML IV SCH (16:00)
[2022-12-26 16:06] LABS: APPEARANCE,URINE CLEAR (Clear); BILIRUBIN,URINE NEGATIVE (Negative); COLOR,URINE YELLOW (Yellow); GLUCOSE,URINE NEGATIVE (Negative); KETONES,URINE NEGATIVE (Negative); LEUKOCYTE ESTERASE,URINE 2+ (Negative); NITRITE,URINE NEGATIVE (Negative); OCCULT BLOOD,URINE 1+ (Negative); PROTEIN,URINE NEGATIVE (Negative); UROBILINOGEN,URINE 0.2 (0.2-1.0)
[2022-12-26 16:15] LABS: BACTERIA,URINE MODERATE /hpf (FEW); MUCUS,URINE NOT SEEN /hpf (FEW); SQUAMOUS EPITHELIAL CELLS,UR 0-5 /hpf (0-5); WBC CLUMPS,URINE FEW /hpf (NOT SEEN); WBC,URINE 75-100 /hpf (0-5)
[2022-12-26 16:24] LABS: BASOPHILS ABSOLUTE AUTO 0.1 K/mm3 (0.0-0.2); BASOPHILS PERCENT AUTO 0.5 % (0.0-1.0); EOSINOPHILS PERCENT AUTO 0.3 % (0.0-6.0); HEMATOCRIT 39.9 % (37.0-47.0); HEMOGLOBIN 12.8 gm/dl (12.0-16.0); IMMATURE GRAN ABSOLUTE AUTO 0.04 K/mm3 (0.00-0.05); IMMATURE GRAN PERCENT AUTO 0.4 % (0.0-0.4); LYMPHOCYTES ABSOLUTE AUTO 1.6 K/mm3 (1.0-4.8); LYMPHOCYTES PERCENT AUTO 13.9 % (24.0-44.0); MEAN CORPUSCULAR HEMOGLOBIN 28.1 pg (28.0-32.0); MEAN CORPUSCULAR HGB CONC 32.1 g/dl (32.0-36.0); MEAN CORPUSCULAR VOLUME 87.5 fl (83.0-99.0); MEAN PLATELET VOLUME 10.1 fl (9.4-12.3); MONOCYTES ABSOLUTE AUTO 0.6 K/mm3 (0.0-0.8); MONOCYTES PERCENT AUTO 5.6 % (0.0-8.0); NEUTROPHILS PERCENT AUTO 79.3 % (41.0-71.0); PLATELET COUNT,PLT 252 K/mm3 (150-400); RED BLOOD CELL COUNT 4.56 M/mm3 (4.10-5.30); WHITE BLOOD CELL COUNT,WBC 11.37 K/mm3 (3.9-11.3)
[2022-12-26 16:44] LABS: A/G RATIO 0.9 (1-2); ALBUMIN 3.6 g/dl (3.4-5.0); ANION GAP 10.7 (5-15); BILIRUBIN TOTAL 0.3 mg/dL (0.2-1.0); CALCIUM 9.3 mg/dL (8.5-10.1); CREATININE 0.5 mg/dL (0.55-1.02); EST CRCL DRUG DOSING (CG) 116.03 mL/min; PROTEIN TOTAL,TP 7.5 g/dl (6.4-8.2)
[2022-12-26 16:45] LABS: POTASSIUM,K 3.7 mEq/L (3.5-5.1)
[2022-12-26] MEDS ORDERED: Cephalexin 500 MG Cap PO ONE (17:58)
[2022-12-26 18:16] VITALS: BP 126/74
== END 2022-12-26 18:17 | disposition home or self-care (01) ==
LOC: JD.ED 15:06
DX: O23.42 Unspecified infection of urinary tract in pregnancy, second trimester (principal); N39.0 Urinary tract infection, site not specified; Z3A.16 16 weeks gestation of pregnancy
CPT/HCPCS: 36415; 76705; 80053; 81001; 83690; 85025; 99284; A9270; J3490; J7030; 99283